=== PATIENT | female | born 1985 | race African-American/Black ===

== ENCOUNTER → 2017-04-25 | Outpatient (CLI) | payer OTHER ==
--- NOTE | 2017-04-25 15:41 | REP ---
Clinical: Dating and viability. Technique: Transabdominal and transvaginal first trimester obstetrical ultrasound with color Doppler evaluation. Findings: Single live early intrauterine is appreciated. Gestational sac with yolk sac and pole identified. [place]-rump length of 7 mm corresponds to 6 weeks 4 days gestational age with estimated date of delivery 12/15/2017 . heart rate equals 133 beats per minute. A small subchorionic hemorrhage is identified measuring less than 3 cm maximal diameter along with a right anterior pedunculated fibroid measuring 2.2 x 1.9 x 1.5 cm. Maternal right ovary includes 2.3 x 2.0 x 2.0 cm primarily isoechoic mass lesion with central hyperechoic material and fluid. Differential diagnosis includes corpus luteal cyst as well as a dermoid. Impression: 1. Single live early intrauterine at 6 weeks 4 days gestational age with small subchorionic hemorrhage. Complete anatomical assessment should be performed and 19-20 weeks. 2. 2.2 cm right pedunculated fibroid. 3. 2.3 cm primarily isoechoic mass within the right ovary. Differential diagnosis includes corpus luteal cyst as well as dermoid. Consider follow-up examination after delivery. Signed by Jadiel Church MD 04/25/2017 03:33 P
== END ==
LOC: M RAD 14:36
PROVIDERS: ATTEND Nurse Practitioner Women's Health
DX: O03.9 Complete or unspecified spontaneous abortion without complication (principal)

== ENCOUNTER → 2017-06-10 | Outpatient (CLI) | payer OTHER ==
[2017-06-10 18:22] LABS: BASO % 0.1 % (0.0-1.0); EOS % 0.1 % (0.0-3.0); HEMATOCRIT 33.5 % (36.0-47.0); HEMOGLOBIN 10.9 g/dl (12.0-16.0); IMMATURE GRANULOCYTE % 0.3 % (0-0); LYMPH # 1.8 10^3/uL (1.5-4.5); LYMPH % 24.7 % (24.0-44.0); MEAN CORPUSCULAR HGB CONC 32.5 g/dl (32.0-36.5); MEAN CORPUSCULAR VOLUME 82.9 fl (80.0-96.0); MONO # 0.5 10^3/uL (0.0-0.8); MONO % 7.3 % (0.0-5.0); NEUTROPHILS # 4.8 10^3/uL (1.8-7.7); NEUTROPHILS % 67.5 % (36.0-66.0); PLATELET COUNT, AUTOMATED 225 10^3/uL (150-450); RED BLOOD COUNT 4.04 10^6/uL (4.00-5.40); RED CELL DISTRIBUTION WIDTH 16.1 % (11.5-14.5); WHITE BLOOD COUNT 7.2 10^3/uL (4.0-10.0)
[2017-06-11 11:01] LABS: RUBELLA IgG QUALITATIVE IMMUNE (IMMUNE)
[2017-06-11 11:04] LABS: HBsAg Prenatal NEGATIVE (NEGATIVE)
[2017-06-11 11:30] LABS: HIV 1&2 SCREEN CENTAUR NEGATIVE (NEGATIVE)
[2017-06-11 11:45] LABS: HEPATITIS C VIRUS ABY INDEX < 0.0 INDEX (<0.8)
[2017-06-11 15:06] LABS: CHLAMYDIA DNA AMPLIFICATION NEGATIVE (NEGATIVE); GC DNA AMPLIFICATION NEGATIVE (NEGATIVE)
== END ==
LOC: M LRY 12:18
DX: Z36.89 Encounter for other specified antenatal screening (principal); Z3A.11 11 weeks gestation of pregnancy
CPT/HCPCS: 86762

== ENCOUNTER → 2017-07-21 | Outpatient (CLI) | payer OTHER | LOC: M LRY 13:33 | DX: Z34.82 Encounter for supervision of other normal pregnancy, second trimester (principal) ==

== ENCOUNTER → 2017-09-19 | Outpatient (CLI) | payer OTHER ==
[2017-09-19 20:20] LABS: HEMATOCRIT 28.9 % (36.0-47.0); HEMOGLOBIN 8.8 g/dl (12.0-15.5); MEAN CORPUSCULAR HEMOGLOBIN 23.8 pg (27.0-33.0); MEAN CORPUSCULAR HGB CONC 30.4 g/dl (32.0-36.5); MEAN CORPUSCULAR VOLUME 78.1 fl (80.0-96.0); PLATELET COUNT, AUTOMATED 288 10^3/uL (150-450); RED CELL DISTRIBUTION WIDTH 14.1 % (11.5-14.5)
[2017-09-19 20:38] LABS: GLUCOSE CHALLENGE TEST 1 HOUR 97 MG/DL (LESS THAN 140)
== END ==
LOC: M LRY 16:39
DX: Z36.89 Encounter for other specified antenatal screening (principal); Z3A.00 Weeks of gestation of pregnancy not specified
CPT/HCPCS: 82950

== ENCOUNTER 2017-10-29 08:16 | Outpatient (CLI) | payer OTHER ==
[2017-10-29] MEDS: IRON SUCROSE 500 MG in NS 250 ML IV (09:04)
== END 2017-10-29 13:35 | disposition home or self-care (01) ==
LOC: M INFU 08:16
DX: D64.9 Anemia, unspecified (principal)
CPT/HCPCS: J1756

== ENCOUNTER → 2017-11-11 | Outpatient (CLI) | payer OTHER ==
[2017-11-11 17:48] LABS: BASO % 0.2 % (0.0-1.0); EOS % 0.2 % (0.0-3.0); HEMATOCRIT 35.3 % (36.0-47.0); HEMOGLOBIN 11.4 g/dl (12.0-15.5); IMMATURE GRANULOCYTE % 0.8 % (0-3.0); LYMPH # 1.7 10^3/uL (1.5-4.5); LYMPH % 15.4 % (24.0-44.0); MEAN CORPUSCULAR HEMOGLOBIN 25.8 pg (27.0-33.0); MEAN CORPUSCULAR HGB CONC 32.3 g/dl (32.0-36.5); MEAN CORPUSCULAR VOLUME 79.9 fl (80.0-96.0); MONO # 0.9 10^3/uL (0.0-0.8); MONO % 8.1 % (0.0-5.0); NEUTROPHILS # 8.2 10^3/uL (1.8-7.7); NEUTROPHILS % 75.3 % (36.0-66.0); PLATELET COUNT, AUTOMATED 249 10^3/uL (150-450); RED BLOOD COUNT 4.42 10^6/uL (4.00-5.40); RED CELL DISTRIBUTION WIDTH 23.4 % (11.5-14.5); WHITE BLOOD COUNT 10.9 10^3/uL (4.0-10.0)
== END ==
LOC: M LRY 15:01
DX: Z36.89 Encounter for other specified antenatal screening (principal)
CPT/HCPCS: 85025

== ENCOUNTER 2017-12-14 18:16 | Inpatient (IN) | payer OTHER ==
[2017-12-14 18:59] LABS: HEMATOCRIT 39.4 % (36.0-47.0); HEMOGLOBIN 12.6 g/dl (12.0-15.5); MEAN CORPUSCULAR HEMOGLOBIN 25.8 pg (27.0-33.0); MEAN CORPUSCULAR VOLUME 80.7 fl (80.0-96.0); PLATELET COUNT, AUTOMATED 190 10^3/uL (150-450); RED BLOOD COUNT 4.88 10^6/uL (4.00-5.40); RED CELL DISTRIBUTION WIDTH 20.3 % (11.5-14.5); WHITE BLOOD COUNT 12.9 10^3/uL (4.0-10.0)
[2017-12-14 19:15] LABS: POS COUNT POS FLAG
[2017-12-14] MEDS: LR 1,000 ML IV (20:00)
[2017-12-14] MEDS ORDERED: OXYTOCIN 30 UNITS IN 0.9% NaCl 500ML IV BAG (J2590) As Ordered (20:43)
[2017-12-14] MEDS: OXYTOCIN DRIP 30 UNITS in APPROPRIATE DILUENT 1 EA IV (22:34)
[2017-12-14] MEDS ORDERED: FENTANYL 2MCG/ML ROPIVACAINE 0.2% IN 0.9% NACL 200ML IVBAG As Ordered (23:16)
[2017-12-14] MEDS ORDERED: BICITRA 30ML SOLN UDC As Ordered (23:26)
[2017-12-14] MEDS ORDERED: ceFAZolin 2 GM/D5W 50 ML IV BAG (J0690 PER 500MG) As Ordered (23:26)
[2017-12-14] MEDS ORDERED: diphenhydrAMINE INJ 50MG/ML VIAL (J1200) IV (23:35)
[2017-12-14] MEDS ORDERED: LACTATED RINGER'S 1000 ML IV (23:35)
[2017-12-14] MEDS ORDERED: FENTANYL/ROPIVACAINE/NACL BAG 200 ML EPIDURAL (23:35)
[2017-12-14] MEDS ORDERED: REFRIGERATOR IV KEYS XX (23:35)
[2017-12-14] MEDS ORDERED: ePHEDrine SULFATE 25 MG/5 ML(5MG/ML) SYRINGE IV (23:35)
[2017-12-14] MEDS ORDERED: EPIDURAL/PCA KEYS XX (23:35)
[2017-12-14] MEDS ORDERED: EPIDURAL COMMENT XX (23:35)
[2017-12-14] MEDS ORDERED: ONDANSETRON 4MG/2ML VIAL (J2405) IV (23:35)
[2017-12-14] MEDS ORDERED: NALOXONE INJ 0.4 MG/1 ML VIAL (J2310) IV (23:35)
[2017-12-15] MEDS ORDERED: LIDOCAINE PRES-FREE 2% 10ML AMP As Ordered (01:27)
[2017-12-15] MEDS ORDERED: OXYTOCIN INJ 10 UNITS/ML VIAL (J2590) As Ordered ×2 (02:04)
[2017-12-15] MEDS ORDERED: MORPHINE PRES-FREE INJ 10 MG/10 ML VIAL (J2274) As Ordered (02:05)
[2017-12-15] MEDS ORDERED: ONDANSETRON 4MG/2ML VIAL (J2405) As Ordered (02:08)
[2017-12-15] MEDS ORDERED: METOCLOPRAMIDE INJ 10MG/2ML VIAL (J2765) IV (02:10)
[2017-12-15] MEDS ORDERED: NALBUPHINE HCL 10 MG/ML AMP (J2300) IV (02:10)
[2017-12-15] MEDS ORDERED: ONDANSETRON 4MG/2ML VIAL (J2405) IV ×3 (02:10→03:30)
[2017-12-15] MEDS ORDERED: NALOXONE INJ 0.4 MG/1 ML VIAL (J2310) IV ×2 (02:10)
[2017-12-15] MEDS ORDERED: RHOGAM 300 MCG (1500 IU) INJ (J2790) IM (02:30)
[2017-12-15] MEDS ORDERED: MEASLES,MUMPS,RUBELLA VACCINE INJ (MMR-II) (90707) SC (02:30)
[2017-12-15] MEDS ORDERED: DOCUSATE SODIUM 100 MG CAP PO (02:30)
[2017-12-15] MEDS ORDERED: PERCOCET 5MG/325MG TAB PO (03:30)
[2017-12-15] MEDS ORDERED: fentaNYL 100 MCG/2 ML INJECTION (J3010) IV (03:30)
[2017-12-15] MEDS: LR 1,000 ML IV ×3 (03:30→10:19)
[2017-12-15] MEDS ORDERED: fentaNYL 100 MCG/2 ML INJECTION (J3010) As Ordered (03:56)
[2017-12-15] MEDS: PRENATAL VITAMINS CHEWABLE TABLET PO (08:28)
[2017-12-15] MEDS: KETOROLAC 30 MG/ML VIAL (J1885) IV ×3 (08:29→20:35)
[2017-12-16] MEDS: IBUPROFEN 800 MG TAB PO ×3 (04:37→20:15)
[2017-12-16 06:37] LABS: HEMATOCRIT 27.9 % (36.0-47.0); MEAN CORPUSCULAR HEMOGLOBIN 25.5 pg (27.0-33.0); MEAN CORPUSCULAR HGB CONC 31.9 g/dl (32.0-36.5); MEAN CORPUSCULAR VOLUME 79.9 fl (80.0-96.0); PLATELET COUNT, AUTOMATED 188 10^3/uL (150-450); RED BLOOD COUNT 3.49 10^6/uL (4.00-5.40); RED CELL DISTRIBUTION WIDTH 20.3 % (11.5-14.5); WHITE BLOOD COUNT 11.7 10^3/uL (4.0-10.0)
[2017-12-16 06:44] LABS: HEMOGLOBIN 8.9 g/dl (12.0-15.5)
[2017-12-16] MEDS: PRENATAL VITAMINS CHEWABLE TABLET PO (08:07)
[2017-12-16] MEDS: PERCOCET 5MG/325MG TAB PO ×2 (08:08→14:49)
[2017-12-17] MEDS: IBUPROFEN 800 MG TAB PO ×2 (04:03→12:36)
[2017-12-17] MEDS: PRENATAL VITAMINS CHEWABLE TABLET PO (07:56)
== END 2017-12-17 15:10 | disposition home or self-care (01) | DRG 766 ==
LOC: M LDO 18:16 → M OBS 12-15 04:34 → M LDI 18:34
PROVIDERS: Specialist
PROC: 10D00Z1 Extraction of Products of Conception, Low, Open Approach (ICD-10-PCS; principal; 2017-12-14 01:41)
DX: O48.0 Post-term pregnancy (principal); O99.02 Anemia complicating childbirth; Z3A.40 40 weeks gestation of pregnancy; D52.9 Folate deficiency anemia, unspecified; O62.0 Primary inadequate contractions; O64.0XX0 Obstructed labor due to incomplete rotation of fetal head, not applicable or unspecified; Z37.0 Single live birth

== ENCOUNTER → 2018-04-15 | Outpatient (REF) | payer OTHER ==
[~2018-04-15] MED LIST: IBUP-1114 PO; OXYC1TAB23 PO; PRENTAB9 PO
[2018-04-15 22:32] LABS: CHLAMYDIA DNA AMPLIFICATION NEGATIVE (NEGATIVE); GC DNA AMPLIFICATION NEGATIVE (NEGATIVE)
== END ==
LOC: M SFHCLERA 15:09
PROVIDERS: ATTEND Family Medicine
DX: R39.89 Other symptoms and signs involving the genitourinary system (principal)
CPT/HCPCS: 87086; 87491; 87591; 90471; 90686; G0463

== ENCOUNTER → 2018-04-24 | Outpatient (CLI) | payer OTHER ==
--- NOTE | 2018-04-24 16:33 | REP ---
Clinical: Follow-up right ovarian lesion. Comparison: 08/14/2017 . Technique: Transabdominal pelvic ultrasound followed by transvaginal examination for better evaluation of the endometrium and adnexa with color Doppler evaluation of the ovaries. Findings: Bladder is unremarkable and measures 2.8 x 1.9 x 6.1 cm . Heterogeneous anteverted uterus measures 8.2 x 3.5 x 5.3 cm with 1.8 cm right anterior subserosal fibroid noted. The endometrial complex measures 2.0 mm thickness. Bilateral ovaries are normal in appearance and vascularity without evidence for torsion. Right ovary measures 3.5 x 120 x 2.2 cm and again includes 6 mm hyperechoic focus which may represent small dermoid and is otherwise nonspecific ; R I = 0.37. Left ovary measures 3.5 x 1.6 x 2.9 cm; R I = 0.48. No pelvic free fluid or adnexal mass lesion . Impression: 1. Small anterior right subserosal fibroid measures 1.8 cm maximal diameter. 2. 6 mm hyperechoic focus in the right ovary unchanged may represent small dermoid and is otherwise nonspecific and likely insignificant. Electronically Signed by Jadiel Church MD 04/24/2018 04:25 P
== END ==
LOC: M LRY 13:35
PROVIDERS: ATTEND Family Medicine
DX: D25.9 Leiomyoma of uterus, unspecified (principal); N83.9 Noninflammatory disorder of ovary, fallopian tube and broad ligament, unspecified

== ENCOUNTER → 2018-04-27 | Outpatient (REF) | payer OTHER ==
[2018-04-27 17:20] LABS: CHLAMYDIA DNA AMPLIFICATION NEGATIVE (NEGATIVE); GC DNA AMPLIFICATION NEGATIVE (NEGATIVE)
== END ==
LOC: M SFHCLERA 14:08
PROVIDERS: ATTEND Physician Assistant
DX: N89.8 Other specified noninflammatory disorders of vagina (principal)

== ENCOUNTER → 2018-07-15 | Outpatient (REF) | payer OTHER ==
[2018-07-18 14:37] LABS: HPV HYBRID CAPTURE II Negative (Negative)
== END ==
LOC: M LAB REF 17:34
PROVIDERS: ATTEND Advanced Practice Midwife
DX: Z12.4 Encounter for screening for malignant neoplasm of cervix (principal); Z11.51 Encounter for screening for human papillomavirus (HPV)
CPT/HCPCS: 87624; G0123

== ENCOUNTER → 2018-07-22 | Outpatient (CLI) | payer OTHER ==
--- NOTE | 2018-07-23 09:30 | REP ---
FOCUSED LEFT BREAST SONOGRAPHY: HISTORY: Left breast lump. The patient is currently lactating. Positive family history breast carcinoma. Lump in the left arm noticed 4 days prior. FINDINGS: The palpable lump in the left axilla was imaged. A lymph node is seen at the palpable area measuring 1.7 x 0.8 x 0.4 cm, approximate 9.5 cm from the nipple. This has a preserved echogenic central fatty zone and hilar architecture. It is compatible with a normal benign lymph node. IMPRESSION: BIRADS category 2 benign findings. Clinical follow-up is advised. Electronically Signed by Oni Ortiz MD 07/23/2018 09:32 A
== END ==
LOC: M RAD 11:56
PROVIDERS: ATTEND Family Medicine
DX: R59.0 Localized enlarged lymph nodes (principal); Z80.3 Family history of malignant neoplasm of breast

== ENCOUNTER → 2018-08-26 | Outpatient (REF) | payer OTHER ==
[2018-08-26 17:02] LABS: BASO % 0.4 % (0.0-1.0); EOS % 0.4 % (0.0-3.0); HEMATOCRIT 38.6 % (36.0-47.0); HEMOGLOBIN 11.9 g/dl (12.0-15.5); MEAN CORPUSCULAR HEMOGLOBIN 26.2 pg (27.0-33.0); MEAN CORPUSCULAR HGB CONC 30.8 g/dl (32.0-36.5); MEAN CORPUSCULAR VOLUME 84.8 fl (80.0-96.0); MONO # 0.5 10^3/uL (0.0-0.8); MONO % 9.3 % (0.0-5.0); NEUTROPHILS # 2.8 10^3/uL (1.8-7.7); NEUTROPHILS % 52.7 % (36.0-66.0); PLATELET COUNT, AUTOMATED 258 10^3/uL (150-450); RED BLOOD COUNT 4.55 10^6/uL (4.00-5.40); WHITE BLOOD COUNT 5.3 10^3/uL (4.0-10.0)
== END ==
LOC: M SFHCLERA 14:39
PROVIDERS: ATTEND Family Medicine
DX: R09.89 Other specified symptoms and signs involving the circulatory and respiratory systems (principal)
CPT/HCPCS: 85025; G0463

== ENCOUNTER → 2018-08-28 | Outpatient (REF) | payer OTHER | LOC: M SFHCLERA 14:38 | PROVIDERS: ATTEND Nurse Practitioner Family | DX: R53.81 Other malaise (principal) ==

== ENCOUNTER → 2018-12-22 | Outpatient (REF) | payer OTHER ==
[2018-12-22 16:54] LABS: BASO % 0.5 % (0.0-1.0); HEMATOCRIT 39.1 % (36.0-47.0); HEMOGLOBIN 12.4 g/dl (12.0-15.5); LYMPH # 1.9 10^3/uL (1.5-4.5); MEAN CORPUSCULAR HEMOGLOBIN 26.6 pg (27.0-33.0); MEAN CORPUSCULAR HGB CONC 31.7 g/dl (32.0-36.5); MEAN CORPUSCULAR VOLUME 83.7 fl (80.0-96.0); MONO # 0.4 10^3/uL (0.0-0.8); MONO % 7.4 % (0.0-5.0); NEUTROPHILS # 3.2 10^3/uL (1.8-7.7); NEUTROPHILS % 57.9 % (36.0-66.0); PLATELET COUNT, AUTOMATED 226 10^3/uL (150-450); RED BLOOD COUNT 4.67 10^6/uL (4.00-5.40); WHITE BLOOD COUNT 5.6 10^3/uL (4.0-10.0)
== END ==
LOC: M SFHCLERA 14:12
PROVIDERS: ATTEND Family Medicine
DX: R22.32 Localized swelling, mass and lump, left upper limb (principal)

== ENCOUNTER → 2018-12-22 | Outpatient (CLI) | payer OTHER ==
--- NOTE | 2018-12-22 15:32 | REP ---
HISTORY: Cough. COMPARISON: None. The heart size is borderline with a left ventricular configuration. The lung meneses are clear and the pleural angles are sharp. The osseous structures are normal. IMPRESSION: Nonenlarged cardiac silhouette, however, there is a left ventricular configuration which should be correlated clinically with appropriate followup. Electronically Signed by Emory Salazar DO 12/22/2018 03:38 P
== END ==
LOC: M LRY 14:28
PROVIDERS: ATTEND Family Medicine
DX: R22.32 Localized swelling, mass and lump, left upper limb (principal)

== ENCOUNTER → 2018-12-25 | Outpatient (CLI) | payer OTHER ==
--- NOTE | 2018-12-25 11:23 | REP ---
Left axilla ultrasound for palpable lump: Multiple, at least six, axillary lymph nodes are identified with echolucent cortices an echogenic janae. Short axis measurements of these lymph nodes are: 0.4 cm, 0.4 cm, 0.6 cm, 0.6 cm, 0.6 cm, 0.6 cm. 0.5 cm short axis is considered upper normal. Therefore, several of these lymph nodes are minimally enlarged. There are no other axillary masses or cysts are identified. Electronically Signed by Rico Vargas MD 12/25/2018 11:14 A
== END ==
LOC: M RAD 09:47
PROVIDERS: ATTEND Family Medicine
DX: R22.32 Localized swelling, mass and lump, left upper limb (principal); R59.9 Enlarged lymph nodes, unspecified

== ENCOUNTER → 2019-02-09 | Outpatient (CLI) | payer OTHER ==
--- NOTE | 2019-02-09 11:37 | REP ---
BILATERAL MAMMOGRAM, DIAGNOSTIC MAMMOGRAM LEFT BREAST WITH LEFT BREAST ULTRASOUND: Family history of breast cancer in mother at age 50. [facility] lifetime risk of breast cancer 27.3%. Reportedly there are two palpable lumps in the left axillary region. These areas are marked on the skin with triangular markers. These findings are present at the time of the prior ultrasound 12/25/2018. The ultrasound showed normal appearing lymph nodes. The patient was breast feeding at that time. The patient has terminated breast feeding since that time. MLO and CC views of both breasts performed in addition to left axillary CC and right ML views. Breast parenchyma is extremely dense limiting the sensitivity of the mammogram. I see no mammographic evidence of a mass or architectural distortion. No clustered microcalcifications are seen. Real-time sonographic evaluation of the left axillary region performed at the site of the two palpable abnormalities. Once again, nonenlarged lymph nodes are present. These appear morphologically normal with echogenic fatty janae. Maximum short axis dimension is 5-6 mm, unchanged. IMPRESSION: BIRADS 2: BI-RADS/ACR category 2 mammogram. Benign Findings. ACR 2 benign. Dense breast parenchyma limits the sensitivity of the mammogram. No mammographic evidence of mass. By ultrasound, at the site of the two palpable lumps in the left axillary region, there are three normal-appearing lymph nodes which have remained stable since the prior ultrasound of 12/25/2018. They are morphologically normal in appearance and demonstrate short-axis dimension of 5-6 mm. Clinical correlation and followup is recommended. Give the dense breast parenchyma and family history with elevated lifetime risk of breast cancer, further evaluation could be made with MRI of the breasts with and without contrast for supplemental evaluation. This mammogram was interpreted with the aid of an FDA-approved computer-aided detection system. A. Negative x-ray reports should not delay biopsy if a dominant or clinically suspicious mass is present. B. Four to eight percent of cancers are not identified by x-ray. C. Adenosis and dense breasts may obscure an underlying neoplasm. The patient states she/he had a clinical breast exam in January 2019. The patient letter being requested is M2. Electronically Signed by Rico Sánchez MD 02/10/2019 04:12 P
== END ==
LOC: M RAD 09:39
PROVIDERS: ATTEND Family Medicine
DX: R22.32 Localized swelling, mass and lump, left upper limb (principal); Z80.3 Family history of malignant neoplasm of breast